=== PATIENT | male | born 1960 | race Two or more races ===

== ENCOUNTER → 2016-10-01 | Outpatient (CLI) | payer BC ==
--- NOTE | 2016-10-01 16:08 | REP ---
Chest two views HISTORY: Cough Comparison: None The lungs are clear. The heart is normal in size. The pulmonary vasculature is normal in appearance. The bony structure is intact. IMPRESSION: No acute disease. Signed by Ricci Ferreira MD 10/01/2016 04:00 P
== END ==
LOC: M LRY 15:40
PROVIDERS: ATTEND Physician Assistant
DX: R05 Cough (principal)

== ENCOUNTER → 2016-10-09 | Outpatient (REF) | payer BC ==
[2016-10-09 18:47] LABS: MEAN CORPUSCULAR HEMOGLOBIN 33.2 pg (27.0-33.0); MEAN CORPUSCULAR HGB CONC 33.2 g/dl (32.0-36.5); RED CELL DISTRIBUTION WIDTH 13.1 % (11.5-14.5); WHITE BLOOD COUNT 7.2 K/mm3 (4.0-10.0)
[2016-10-09 19:31] LABS: ALBUMIN/GLOBULIN RATIO 1.21 (1.00-1.93); ALKALINE PHOSPHATASE 84 U/L (45-117); ALT/SGPT 81 U/L (12-78); ANION GAP 8 MEQ/L (8-16); AST/SGOT 38 U/L (15-37); BILIRUBIN,TOTAL 0.5 MG/DL (0.2-1.0); BLOOD UREA NITROGEN 10 MG/DL (7-18); CALCIUM LEVEL 8.5 MG/DL (8.5-10.1); CARBON DIOXIDE LEVEL 31 MEQ/L (21-32); CHLORIDE LEVEL 101 MEQ/L (98-107); CHOLESTEROL LEVEL 173 MG/DL (<200); CREATININE FOR GFR 0.95 MG/DL (0.70-1.30); GLOMERULAR FILTRATION RATE > 60.0 (>56); GLUCOSE, FASTING 166 MG/DL (70-105); POTASSIUM SERUM 4.4 MEQ/L (3.5-5.1); SODIUM LEVEL 140 MEQ/L (136-145); TOTAL PROTEIN 7.3 GM/DL (6.4-8.2); TRIGLYCERIDES LEVEL 243 MG/DL (<150)
== END ==
LOC: M SFHCLERA 09:41
PROVIDERS: ATTEND Physician Assistant
DX: I10 Essential (primary) hypertension (principal); Z13.220 Encounter for screening for lipoid disorders; E55.9 Vitamin D deficiency, unspecified

== ENCOUNTER → 2018-02-26 | Outpatient (CLI) | payer BC | LOC: M LRY 12:47 | DX: M17.11 Unilateral primary osteoarthritis, right knee (principal); M79.89 Other specified soft tissue disorders | CPT/HCPCS: 73564; G0463 ==

== ENCOUNTER 2018-09-12 12:19 | Observation (INO) | payer BC ==
[~2018-09-12] VITALS: Ht 182.9 cm; Wt 152.0 kg
[2018-09-12] MEDS ORDERED: CLAR10CA3 PO (12:32)
[2018-09-12] MEDS ORDERED: PRIL20TA2 PO (12:32)
[2018-09-12] MEDS ORDERED: VENTAER INH (12:33)
[2018-09-12] MEDS ORDERED: E-Z-PAQUE 96% w/w SUSP 176GM BTL As Ordered ONE (15:20)
[2018-09-12] MEDS ORDERED: E-Z-GAS II EFFERVESCENT PACKET (SODIUM BICARB./CITRIC ACID/SIMETHICONE) As Ordered ONE (15:20)
[2018-09-12] MEDS ORDERED: E-Z-HD 98% w/w 340GM SUSP BTL As Ordered ONE (15:20)
[2018-09-12] MEDS ORDERED: D5W/0.45% SODIUM CHLORIDE 1,000 ML IV SCH (18:04)
[2018-09-12] MEDS ORDERED: PANTOPRAZOLE 40MG INJ (PROTONIX) (C9113) IV ONE (18:15)
[2018-09-12] MEDS ORDERED: ALBUTEROL SULFATE 2.5 MG/0.5 ML INH NEB SOLN NEB PRN (19:45)
[2018-09-12 19:59] LABS: HEMOGLOBIN 14.9 g/dl (13.5-17.5); MEAN CORPUSCULAR HGB CONC 33.9 g/dl (32.0-36.5); MEAN CORPUSCULAR VOLUME 91.7 fl (80.0-96.0); PLATELET COUNT, AUTOMATED 248 10^3/uL (150-450); WHITE BLOOD COUNT 12.8 10^3/uL (4.0-10.0)
[2018-09-12] MEDS: D5W/0.45% SODIUM CHLORIDE 1,000 ML IV SCH (20:00)
[2018-09-12 20:10] LABS: INR 1.06; PROTHROMBIN TIME 13.9 SECONDS (12.1-14.4)
[2018-09-12 20:27] LABS: ALBUMIN 4.4 GM/DL (3.2-5.2); ALT/SGPT 62 U/L (12-78); BILIRUBIN,TOTAL 0.6 MG/DL (0.2-1.0); BLOOD UREA NITROGEN 17 MG/DL (7-18); CALCIUM LEVEL 9.7 MG/DL (8.8-10.2); CARBON DIOXIDE LEVEL 26 MEQ/L (21-32); CHLORIDE LEVEL 104 MEQ/L (98-107); CREATININE FOR GFR 0.94 MG/DL (0.70-1.30); GLOMERULAR FILTRATION RATE > 60.0 (>49); GLUCOSE, FASTING 97 MG/DL (70-100); POTASSIUM SERUM 4.3 MEQ/L (3.5-5.1); SODIUM LEVEL 139 MEQ/L (136-145)
--- NOTE | 2018-09-12 20:28 | REP ---
Esophagram The procedure was performed under the direct supervision of Dr. Felton. The images were reviewed with Dr. Felton. A single view PA chest x-ray is submitted as a lifestyle director film. The superior mediastinal structures are midline. The heart size is within normal limits. The lungs are clear. Liquid barium was given in the erect position. There is narrowing at the GE junction. There is a food impaction which causes a partial obstruction. Some contrast does pass into the stomach, however, there is delayed emptying in the upright position. Impression: There is narrowing at the GE junction. There is a food impaction which causes a partial obstruction. Some contrast does pass into the stomach, however, there is delayed emptying in the upright position. 0.6 minutes of fluoro time was utilized for this procedure. Reviewed by MADI Del Valle 09/12/2018 03:47 P Electronically Signed by Adrian Felton MD 09/12/2018 08:19 P
[2018-09-12 20:30] VITALS: BP 143/72
--- NOTE | 2018-09-12 21:50 | HPE ---
DATE OF ADMISSION: 09/12/2018 PRIMARY CARE PROVIDER: [facility] ATTENDING PHYSICIAN: Hospitalist Group COMPOSITE BOND WORKER: Dr. Elkins CHIEF COMPLAINT: Foreign body in esophagus. HISTORY: Tyler Isabel is being admitted to the hospitalist service after developing impacted foreign body in his esophagus. hot dog and felt a "stick" in his upper esophagus area, pointing to the sternal notch region. He was unable to bring this up. He could not swallow any further food and had trouble passing liquids. He came to the emergency room. An esophagogram was done, which showed narrowing at the gastroesophageal junction. There was a food impaction causing partial obstruction. Some contrast does pass in the stomach. There is delayed emptying in the upright position. Dr. Elkins has been consulted. We discussed the case. He plans esophagogastroduodenoscopy (EGD) and disimpaction tomorrow. Patient is having no trouble swallowing secretions. He is not having any pain. He is quite comfortable. There is no respiratory difficulty at all. He has a past history of a previous esophageal stricture that was dilated 23 years ago. He has had intermittent problems since then with food feeling like it is sticking transiently, but none that has ever required medical intervention. PAST MEDICAL HISTORY: Shows some mild asthma. He also has some knee pain recently that he took a few days of meloxicam for back in June. He is not currently taking this. SOCIAL HISTORY: He is a therapist at [employer]. He does not smoke. No alcohol. ALLERGIES: BACTRIM caused a rash. He has GLUTEN intolerance and is allergic to HORSE SERUM, MILK, DAIRY, EGGS. FAMILY HISTORY: Noncontributory. REVIEW OF SYSTEMS: No hematemesis, rectal bleeding, unexplained weight loss, cough, shortness of breath, fever, chills. PHYSICAL EXAMINATION: Vital Signs: Per flow sheet. General Appearance: He is resting comfortably in no distress. Pupils equal, round, reactive to light. Tympanic membranes (TMs) normal. Pharynx benign. Neck: No masses. Lungs: Clear. Heart: Regular without murmur. Abdomen: Soft, nontender, no masses. No peripheral edema. LABORATORY: No labs were done. IMPRESSION: Impacted foreign body in esophagus. PLAN: Patient will be admitted overnight. He will be nothing by mouth (n.p.o.). He is not having any trouble handling secretions nor any pain, so EGD can be scheduled tomorrow. Case discussed with Dr. Elkins from the GI service. I have ordered Protonix 40 mg IV, maintenance IV fluids with half normal saline with some dextrose for overnight, albuterol as needed. I expect he can be discharged tomorrow after his procedure. He will be on the hospitalist service.
[2018-09-13] VITALS (8 sets, daily range): BP systolic 130–160; BP diastolic 50–80
[2018-09-13] MEDS: D5W/0.45% SODIUM CHLORIDE 1,000 ML IV SCH ×2 (03:47→12:00)
[2018-09-13] MEDS ORDERED: PANTOPRAZOLE 40MG INJ (PROTONIX) (C9113) IV SCH (09:00)
--- NOTE | 2018-09-13 13:18 | IPNPDOC ---
Date Seen The patient was seen on 09/13/18. Progress Note SUBJECTIVE: Patient is a 58M seen and examined this morning does not appear in acute distress. Patient was admitted for EGD later TODAY with Dr. Mayer. He has no complaints and does not complaining of discomfort. He is unable to articulate if the food is still stuck in there does state that the imaging last night showed that he still had a foreign body stuck in his throat. He denies any chest pain shortness of breath or trouble breathing. He is hungry this morning and would like to have the food but understand that he cannot have any until after his procedure. There was no overnight events reported by nursing. OBJECTIVE PHYSICAL EXAMINATION: VITAL SIGNS: Please see below. GENERAL: resting comfortably in no distress. Appropriately answering questions HEENT: Pupils equal, round, reactive to light. Tympanic membranes (TMs) normal. Pharynx benign. CARDIOVASCULAR: Regular rate and rhythm no audible murmurs RESPIRATORY: Clear to auscultate bilaterally no rhonchi or wheezing ABDOMINAL: Morbidly obese abdomen positive bowel sounds in all 4 quadrants. No tenderness on palpation EXTREMITIES: No lower extremity edema or tenderness in the calves LABORATORY DATA, IMAGING STUDIES, MICROBIOLOGY: Please see below. DVT prophylaxis ordered?: No, ambulatory ASSESSMENT AND PLAN: This is a 58-year-old male with a pertinent past medical history of previous esophageal strictures that dilatated 23 years ago as well as a gluten allergy and dairy and eggs who presented to the ER after he got a hotdog stuck above his EGJ. PROBLEMS: 1. Impacted foreign body in esophagus. -not having any trouble handling secretions nor any pain -nothing by mouth (n.p.o.). -EGD with Dr. Elkins from the GI service this afternoon; case discussed - plan for removal of obstruction and possible dilation c/w Protonix 40 mg IV, D5 +.45 NS 125 MLS/hr. DISPOSITION: -Possible DC after EGD. . VS, I&O, 24H, Fishbone Vital Signs/I&O Vital Signs Date Time Temp Pulse Resp B/P (MAP) Pulse Ox O2 Delivery O2 Flow Rate FiO2 09/13/18 06:00 98.6 80 18 133/62 (85) 95 09/12/18 20:15 Room Air I&O- Last 24 Hours up to 6 AM 09/13/18 06:00 Intake Total 0 ml Output Total 300 ml Balance -300 ml Laboratory Data 24H LABS Laboratory Tests 2 09/12/18 19:46: Nucleated Red Blood Cells % (auto) 0.0 09/12/18 19:51: Prothrombin Time 13.9, Prothromb Time International Ratio 1.06, Activated Partial Thromboplast Time 25.0L, Anion Gap 9, Glomerular Filtration Rate > 60.0, Blood Urea Nitrogen 17, Creatinine 0.94, Sodium Level 139, Potassium Level 4.3, Chloride Level 104, Carbon Dioxide Level 26, Calcium Level 9.7, Aspartate Amino Transf (AST/SGOT) 33, Alanine Aminotransferase (ALT/SGPT) 62, Alkaline Phosphatase 88, Total Bilirubin 0.6, Total Protein 8.0, Albumin 4.4, Albumin/Globulin Ratio 1.22 CBC/BMP Laboratory Tests 09/12/18 19:46 Red Blood Count 4.80, Mean Corpuscular Volume 91.7, Mean Corpuscular Hemoglobin 31.0, Mean Corpuscular Hemoglobin Concent 33.9, Red Cell Distribution Width 13.0 09/12/18 19:51 Calcium Level 9.7, Aspartate Amino Transf (AST/SGOT) 33, Alanine Aminotrans ferase (ALT/SGPT) 62, Alkaline Phosphatase 88, Total Bilirubin 0.6, Total Protein 8.0, Albumin 4.4 GME ATTESTATION GME ATTESTATION My faculty preceptor for this patient encounter was physically present during the encounter and was fully available. All aspects of the patient interview, examination, medical decision making process, and medical care plan development were reviewed and approved by the faculty preceptor. The faculty preceptor is aware and concurs with the plan as stated in the body of this note and will attest to such by his/her cosignature. ATTENDING NOTE I, Uvaldo Mcgowan, have both independently examined this patient as well as reviewed the documentation. I have discussed in detail with the resident the findings and plan of treatment as documented in the residents documentation. I will continue to follow the patient and offer further guidance to the patients care as necessary during this hospital stay. HILDA WALKER DO Sep 13, 2018 13:18 UVALDO MCGOWAN MD Sep 13, 2018 13:29
--- NOTE | 2018-09-13 14:44 | CR.PDOC ---
General Date of Consultation: Sep 13, 2018 Referring Provider: Jamil Negron MD Attending Physician: SRIDHAR GUTIÉRREZ MD Consultation Primary physician/ hospitalist: Dr. Negron. Reason for consult: Dysphagia. HPI: 58 year old male patient with h/o Obesity (BMI 45), BA, chronic acid reflux with previous history of esophageal stricture and dilation presented to ER for complaints of feeling of food getting stuck when he ate 'hotdog' yesterday afternoon. Patient while in ER got soda and he felt some improvement and later had Barium swallow as per the ER physician -- noted with passage of contrast into the stomach with stricture and suspected partial food impaction. Patient reports he does feel the food passed and currently does not have any further chest discomfort, no drooling of saliva and also requesting to eat food. Patient reports having intermittent episodes of similar symptoms in past when he either drinks water and it passes or he indices vomiting. Patient is not taking omeprazole daily at home. Pertinent negative GI symptoms: Patient denies nausea, vomiting, diarrhea, abdominal pain, loss of appetite, early satiety or unintentional weight loss. No history of hematemesis, melena or hematochezia. Patient reports regular bowel movements. Review of Systems: GI: as stated above CVS: No chest pain, No palpitations, No leg swelling. RS: No Shortness of breath, No Wheezing, no cough ENTRY LEVEL ACCOUNT EXECUTIVE: No dizziness, No motor weakness, No sensory problems Hematology: No bruising, No gum bleeding, Musculoskeletal: No joint pain, ambulating well. Skin: No rash : No hematuria, No burning sensation of the urine ENT: No ear discharge/ pain, No dysphagia. Eyes: No photophobia. Jaundice Home medications: reviewed. Antithrombotic agents - None. Medical h/o: As above. Surgical h/o: None on abdomen. Social h/o: Alcohol - rarely social. , smoking - denies , IVDA/ drugs -- Denies . Family h/o of GI cancers - None Prior Endoscopies: --- EGD -- around 23 years ago for dysphagia and stricture dilation. --- Colonoscopy -- had twice in past - normal as per patient ( outside [facility]). Prior GI evaluations: None in [facility]. Exam: Vitals: reviewed General: Alert and oriented x 3, not in distress HEENT: NO pallor, no icterus. Normal oropharynx, NO cervical lymph nodes. Chest: symmetric with bilateral clear air entry, CVS: S1, S2 heard, normal, no murmurs . Abdomen: non-distended, no surgical scars, soft, non-tender, no palpable masses, normal bowel sounds heard. Rectal exam: Patient refused / Deferred at this time in view of scheduled colonoscopy. Extremities: no pedal edema, pulses palpable. ENTRY LEVEL ACCOUNT EXECUTIVE: no focal motor or sensory deficits. Moves all extremities Skin: no rash. Labs: reviewed. Imaging: reviewed Barium swallow - reviewed images. Impression: - Dysphagia with suspected stricture in Barium swallow with prior recurrent episodes of food impactions, currently patient clinically passed the food -- DDX-- GERD with esophagitis vs Achalasia vs less likely Web / mass. Recommendations: - Patient educated about the test results, possible differential diagnoses and All questions answered. - NPO - IV pantorpazole 40 mg twice daily. - Patient will be scheduled for EGD with dilation and Biopsy today. - The procedure, indications, risks (bleeding, perforation, infection, hypotension, respiratory depression, allergy, need for endotracheal intubation, surgery, colostomy, cardiac arrest, even ), benefits, limitations (e.g., missing a lesion), and all other alternatives (including no intervention) were explained to the patient who understood and agreed for the procedure. Plan of care discussed with patient and primary team. Patient verbalized understanding and agreed with the plan. Laboratory Data CBC/BMP Laboratory Tests 09/12/18 19:46 Red Blood Count 4.80, Mean Corpuscular Volume 91.7, Mean Corpuscular Hemoglobin 31.0, Mean Corpuscular Hemoglobin Concent 33.9, Red Cell Distribution Width 13.0 09/12/18 19:51 Calcium Level 9.7, Aspartate Amino Transf (AST/SGOT) 33, Alanine Powell otransferase (ALT/SGPT) 62, Alkaline Phosphatase 88, Total Bilirubin 0.6, Total Protein 8.0, Albumin 4.4 Allergies Coded Allergies: Sulfa (Sulfonamide Antibiotics) (Verified Allergy, Severe, rash, 09/12/18) red dye (Verified Allergy, Unknown, 09/12/18) UNKOWN REACTION egg (Verified Adverse Reaction, Intermediate, 09/12/18) gluten (Verified Adverse Reaction, Intermediate, GI upset, 09/12/18) lactase (Verified Adverse Reaction, Intermediate, 09/12/18) Uncoded Allergies: HORSE SERUM (Allergy, Unknown, 09/12/18) UNKNOWN Home Medications Scheduled Omeprazole Magnesium (Prilosec Otc) 20 Mg Tablet.dr, 20 MG PO DAILY, (Reported) Scheduled PRN Albuterol Sulfate (Ventolin Hfa) 18 Gm Hfa.aer.ad, 2 PUFFS INH Q4-6H PRN for wheezing, (Reported) Loratadine (Claritin) 10 Mg Capsule, 10 MG PO DAILY PRN for ALLERGY SYMPTOMS, (Reported) SRIDHAR GUTIÉRREZ MD Sep 13, 2018 14:44
[2018-09-13] MEDS ORDERED: LIDOCAINE 2% INJ 100 MG/5 ML SDV (FOR ANES.) As Ordered ONE (15:09)
[2018-09-13] MEDS ORDERED: PROPOFOL 200 MG/20 ML VIAL As Ordered ONE (15:09)
[2018-09-13] MEDS ORDERED: fentaNYL 100 MCG/2 ML INJECTION (J3010) As Ordered ONE (15:09)
[2018-09-13] MEDS ORDERED: LR 1,000 ML IV SCH (17:00)
[2018-09-13] MEDS ORDERED: METOCLOPRAMIDE INJ 10MG/2ML VIAL (J2765) IV PRN (17:00)
[2018-09-13] MEDS ORDERED: ONDANSETRON 4MG/2ML VIAL (J2405) IV PRN (17:00)
[2018-09-13] MEDS ORDERED: fentaNYL 100 MCG/2 ML INJECTION (J3010) IV PRN (17:00)
--- NOTE | 2018-09-13 17:15 | ROOR ---
Patient Name: Tyler Isabel Procedure Date: 09/13/2018 2:19 PM Date of : 1960 Age: 58 Gender: Male Note Status: Finalized Procedure: Upper GI endoscopy Indications: Dysphagia, Abnormal UGI series Providers: Gelacio Elkins MD Referring MD: Jamil Negron MD Requesting Provider: Medicines: Monitored Anesthesia Care Complications: No immediate complications. Procedure: Pre-Anesthesia Assessment: - Prior to the procedure, a History and Physical was performed, and patient medications and allergies were reviewed. The patient is competent. The risks and benefits of the procedure and the sedation options and risks were discussed with the patient. All questions were answered and informed consent was obtained. Patient identification and proposed procedure were verified by the physician, the nurse and the anesthesiologist in the procedure room. Mental Status Examination: alert and oriented. Airway Examination: normal oropharyngeal airway and neck mobility. Respiratory Examination: clear to auscultation. CV Examination: normal. Prophylactic Antibiotics: The patient does not require prophylactic antibiotics. Prior Anticoagulants: The patient has taken no previous anticoagulant or antiplatelet agents. ASA Grade Assessment: III - A patient with severe systemic disease. After reviewing the risks and benefits, the patient was deemed in satisfactory condition to undergo the procedure. The anesthesia plan was to use monitored anesthesia care (MAC). Immediately prior to administration of medications, the patient was re-assessed for adequacy to receive sedatives. The heart rate, respiratory rate, oxygen saturations, blood pressure, adequacy of pulmonary ventilation, and response to care were monitored throughout the procedure. The physical status of the patient was re-assessed after the procedure. The Endoscope was introduced through the mouth, and advanced to the second part of duodenum. The upper GI endoscopy was accomplished without difficulty. The patient tolerated the procedure well. Findings: One benign-appearing, intrinsic moderate (circumferential scarring or stenosis; an endoscope may pass) stenosis was found 40 cm from the incisors. This stenosis measured 1 cm (inner diameter). The stenosis was traversed. Biopsies were obtained from the proximal and distal esophagus with cold forceps for histology of suspected eosinophilic esophagitis. Verification of patient identification for the specimen was done by the physician and nurse using the patient's name, date and medical record number. Estimated blood loss was minimal. A TTS dilator was passed through the scope. Dilation with a 15-16.5-18 mm balloon dilator was performed to 15 mm. The dilation site was examined following endoscope reinsertion and showed mild mucosal disruption, moderate improvement in luminal narrowing, no bleeding and no perforation. Patchy mild inflammation characterized by erythema, friability and granularity was found in the gastric antrum. Biopsies were taken with a cold forceps for Helicobacter pylori testing. No gross lesions were noted in the duodenal bulb and in the second portion of the duodenum. Biopsies for histology were taken with a cold forceps for evaluation of celiac disease. Impression: - Benign-appearing esophageal stenosis. Biopsied. Dilated. - Gastritis. Biopsied. - No gross lesions in the duodenal bulb and in the second portion of the duodenum. Biopsied. Recommendation: - Patient has a contact number available for emergencies. The signs and symptoms of potential delayed complications were discussed with the patient. Return to normal activities tomorrow. Written discharge instructions were provided to the patient. - Full liquid diet today, then advance as tolerated to resume regular diet. - Continue present medications. - Use Protonix (pantoprazole) 40 mg PO twice daily - to be taken in morning (1/2 hour before breakfast) and at bedtime ( atleast 3 hours after last meal) for 12 weeks. - Await pathology results. - Repeat upper endoscopy in 3 months for retreatment and depending on the symptoms and clinical response. - Return to GI clinic in [facility] (address [address], [address], [place], [facility]) in 4 -- 6 weeks. Please call GI clinic @ [phone] for apppointment date and time. - Return to primary care physician. Gelacio Elkins MD Gelacio Elkins MD 09/13/2018 5:15:13 PM Electronically signed by Gelacio Elkins MD Number of Addenda: 0 Note Initiated On: 09/13/2018 2:19 PM Estimated Blood Loss: Estimated blood loss was minimal.
[2018-09-13] MEDS: PANTOPRAZOLE 40MG TAB (PROTONIX) PO SCH (19:59)
[2018-09-14 02:30] VITALS: BP 156/90
[2018-09-14 06:00] VITALS: BP 143/67
[2018-09-14] MEDS ORDERED: PANT40TA3 PO (07:15)
[2018-09-14] MEDS: PANTOPRAZOLE 40MG TAB (PROTONIX) PO SCH (07:53)
[2018-09-14 10:00] VITALS: BP 140/72
--- NOTE | 2018-09-14 11:53 | DS.PDOC ---
Discharge Summary General Date of Admission Sep 12, 2018 at 19:35 Date of Discharge September 14, 2018 Discharge Summary PROCEDURES PERFORMED DURING STAY: EGD Dr. Elkins 09/13/18 - Impression: - Benign-appearing esophageal stenosis. Biopsied. Dilated. - Gastritis. Biopsied. - No gross lesions in the duodenal bulb and in the second portion of the duodenum. Biopsied. Recommendation: - Patient has a contact number available for emergencies. The signs and symptoms of potential delayed complications were discussed with the patient. Return to normal activities tomorrow. Written discharge instructions were provided to the patient. - Full liquid diet today, then advance as tolerated to resume regular diet. - Continue present medications. - Use Protonix (pantoprazole) 40 mg PO twice daily - to be taken in morning (1/2 hour before breakfast) and at bedtime ( atleast 3 hours after last meal) for 12 weeks. - Await pathology results. - Repeat upper endoscopy in 3 months for retreatment and depending on the symptoms and clinical response. - Return to GI clinic in [facility] (address [address], [address], [place] [address]) in 4 -- 6 weeks. Please call GI clinic @ [phone] for apppointment date and time. - Return to primary care physician. ADMITTING DIAGNOSES: 1. Impacted foreign body in esophagus DISCHARGE DIAGNOSES: 1. Impacted foreign body in esophagus 2. Dysphagia due to esophageal stenosis COMPLICATIONS/CHIEF COMPLAINT: Foriegn Body In Esophagus. HISTORY OF PRESENT ILLNESS: Tyler Isabel is being admitted to the hospitalist service after developing impacted foreign body in his esophagus. He was eating an hot dog and felt a "stick" in his upper esophagus area, pointing to the sternal notch region. He was unable to bring this up. He could not swallow any further food and had trouble passing liquids. He came to the emergency room. An esophagogram was done, which showed narrowing at the gastroesophageal junction. There was a food impaction causing partial obstruction. Some contrast does pass in the stomach. There is delayed emptying in the upright position. Dr. Elkins has been consulted. We discussed the case. He plans esophagogastroduodenoscopy (EGD) and disimpaction tomorrow. Patient is having no trouble swallowing secretions. He is not having any pain. He is quite comfortable. There is no respiratory difficulty at all. HOSPITAL COURSE: Patient was admitted for EGD which was performed on 09/13/[address] Mario More. It showed that he had a benign-appearing esophageal stenosis and it was dilated. Biopsies were taken of the esophagus and of his gastritis. After the procedure his diet was advanced from full liquid to regular diet which he tolerated well. His home omeprazole was stopped and is advised him to continue to start Protonix 40 mg twice a day for the next 12 weeks. He is to follow-up with Dr. Elkins in 4-6 weeks and have a repeat upper endoscopy in 3 months for retreatment and depending on symptoms and clinical response. All the plans are stated to the patient on the day of discharge. He was agreeable to everything. DISCHARGE MEDICATIONS: Please see below. ALLERGIES: Please see below. PHYSICAL EXAMINATION ON DISCHARGE: VITAL SIGNS: Please see below. GENERAL: resting comfortably in no distress. Appropriately answering questions HEENT: Pupils equal, round, reactive to light. Tympanic membranes (TMs) normal. Pharynx benign. CARDIOVASCULAR: Regular rate and rhythm no audible murmurs RESPIRATORY: Clear to auscultate bilaterally no rhonchi or wheezing ABDOMINAL: Morbidly obese abdomen positive bowel sounds in all 4 quadrants. No tenderness on palpation EXTREMITIES: No lower extremity edema or tenderness in the calves LABORATORY DATA: Please see below. IMAGING: Esophagus XRAY Impression: There is narrowing at the GE junction. There is a food impaction which causes a partial obstruction. Some contrast does pass into the stomach, however, there is delayed emptying in the upright position. 0.6 minutes of fluoro time was utilized for this procedure. PROGNOSIS: Fair ACTIVITY: As tolerated. DIET: Regular DISPOSITION: Home DISCHARGE INSTRUCTIONS: 1. f.u with Dr. Eastman 09/21@10AM 2. f.u. with Dr. Elkins 11/02@10:30AM 3. Stopped omperazole and start pantoprazole Twice a day, prescription sent to pharmacy. 4. If symptoms return or worsen please call your PCP or return to the ER DISCHARGE CONDITION: Stable. TIME SPENT ON DISCHARGE: Greater than 30 minutes. Vital Signs/I&Os Vital Signs Date Time Temp Pulse Resp B/P (MAP) Pulse Ox O2 Delivery O2 Flow Rate FiO2 09/14/18 10:00 97.3 87 18 140/72 (94) 95 09/13/18 18:30 2.0 09/13/18 16:35 100 09/12/18 20:15 Room Air I&O- Last 24 Hours up to 6 AM 09/14/18 06:00 Intake Total 2970 ml Output Total 3705 ml Balance -735 ml Discharge Medications Scheduled Pantoprazole Sodium (Pantoprazole Sodium) 40 Mg Tablet.dr, 40 MG PO BID Scheduled PRN Albuterol Sulfate (Ventolin Hfa) 18 Gm Hfa.aer.ad, 2 PUFFS INH Q4-6H PRN for wheezing, (Reported) Loratadine (Claritin) 10 Mg Capsule, 10 MG PO DAILY PRN for ALLERGY SYMPTOMS, (Reported) Allergies Coded Allergies: Sulfa (Sulfonamide Antibiotics) (Verified Allergy, Severe, rash, 09/12/18) Horse/Equine Containing Products (Verified Allergy, Unknown, HORSE SERUM, 09/13/18) red dye (Verified Allergy, Unknown, 09/12/18) UNKOWN REACTION egg (Verified Adverse Reaction, Intermediate, 09/12/18) gluten (Verified Adverse Reaction, Intermediate, GI upset, 09/12/18) lactase (Verified Adverse Reaction, Intermediate, 09/12/18) GME ATTESTATION GME ATTESTATION My faculty preceptor for this patient encounter was physically present during the encounter and was fully available. All aspects of the patient interview, examination, medical decision making process, and medical care plan development were reviewed and approved by the faculty preceptor. The faculty preceptor is aware and concurs with the plan as stated in the body of this note and will attest to such by his/her cosignature. ATTENDING NOTE I, Uvaldo Mcgowan, have both independently examined this patient as well as reviewed the documentation. I have discussed in detail with the resident the findings and plan of treatment as documented in the residents documentation. I will continue to follow the patient and offer further guidance to the patients care as necessary during this hospital stay. HILDA WALKER DO Sep 14, 2018 11:53 UVALDO MCGOWAN MD Sep 14, 2018 18:24
== END 2018-09-14 11:04 | disposition home or self-care (01) ==
LOC: M ED 12:19 → M ED INP 19:35 → M MSPAV 20:33
PROVIDERS: ADMIT Family Medicine; ATTEND Internal Medicine
DX: T18.128A Food in esophagus causing other injury, initial encounter (principal); K22.2 Esophageal obstruction; K29.70 Gastritis, unspecified, without bleeding; R13.10 Dysphagia, unspecified; R93.3 Abnormal findings on diagnostic imaging of other parts of digestive tract; E66.9 Obesity, unspecified; J45.909 Unspecified asthma, uncomplicated; Z79.899 Other long term (current) drug therapy; Z88.2 Allergy status to sulfonamides; Z88.8 Allergy status to other drugs, medicaments and biological substances; Y92.009 Unspecified place in unspecified non-institutional (private) residence as the place of occurrence of the external cause
CPT/HCPCS: 43239; 43249; 74220; 80053; 85027; 85610; 85730; 88305; 96374; 96376; 99284; C9113; J3010

== ENCOUNTER → 2018-12-01 | Outpatient (CLI) | payer BC ==
[~2018-12-01] MED LIST: CLAR10CA3 PO; E-Z-GAS II EFFERVESCENT PACKET (SODIUM BICARB./CITRIC ACID/SIMETHICONE) As Ordered ONE; E-Z-HD 98% w/w 340GM SUSP BTL As Ordered ONE; E-Z-PAQUE 96% w/w SUSP 176GM BTL As Ordered ONE; PANT40TA3 PO; PRIL20TA2 PO; VENTAER INH
--- NOTE | 2018-12-04 07:48 | REP ---
Examination Requested: Esophagram Barium Swallow Reason For Exam/Comment: Gastroesophageal reflux disease with esophagitis Esophagram: The procedure was performed MADI Lane, under the direct supervision of Dr. Caldera. The images were reviewed with Dr. Caldera. A single PA chest x-ray is submitted as a reviewer sales film. There is a right hilar/lower lobe opacity. Lung mass cannot be excluded, CT of the chest is recommended. Liquid barium and gas producing granules were given in the erect position as well as liquid barium in the prone oblique position, in order to perform a double contrast esophagram examination. Oral and pharyngeal stages of the examination were unremarkable. Esophageal transport is efficient and there is no esophagitis, stricture, or mucosal ring noted. There is no hiatal hernia noted. Gastroesophageal reflux was not demonstrated throughout the course of the exam. Impression: 1. Right lower lobe opacity, CT chest recommended. 2. Unremarkable esophagram. 0.5 minutes of fluoroscopy time was utilized for this procedure. Some fluoroscopic images are performed with last image hold technology. These images require no additional radiation. Reviewed by MADI Virk 12/01/2018 04:56 P Electronically Signed by Melecio Caldera MD 12/04/2018 07:39 A
== END ==
LOC: M RAD 10:04
PROVIDERS: ATTEND Internal Medicine Gastroenterology
DX: K21.0 Gastro-esophageal reflux disease with esophagitis (principal)

== ENCOUNTER → 2019-05-26 | Outpatient (CLI) | payer BC ==
[~2019-05-26] MED LIST changes: -E-Z-GAS II EFFERVESCENT PACKET (SODIUM BICARB./CITRIC ACID/SIMETHICONE) As Ordered ONE; -E-Z-HD 98% w/w 340GM SUSP BTL As Ordered ONE; -E-Z-PAQUE 96% w/w SUSP 176GM BTL As Ordered ONE
--- NOTE | 2019-05-27 09:56 | REP ---
REASON: Cough. COMPARISON: 10/01/2016, the only prior. There is cardiomegaly. There are chronic lung field changes status quo. There are no acute patchy parenchymal opacities or pleural effusions. There is no change in the osseous structures. IMPRESSION:Cardiomegaly, otherwise no significant change from 10/01/2016. There is no evidence of acute cardiopulmonary disease. There is evidence of chronic pulmonary vascular redistribution. Mild chronic interstitial edema should be clinically assessed for. Electronically Signed by Benedicto Perdomo DO 05/27/2019 09:58 A
== END ==
LOC: M LRY 14:18
PROVIDERS: ATTEND Physician Assistant
DX: I51.7 Cardiomegaly (principal); R50.9 Fever, unspecified

== ENCOUNTER → 2019-06-03 | Outpatient (CLI) | payer BC | LOC: M LRY 17:13 | PROVIDERS: ATTEND Physician Assistant | DX: J40 Bronchitis, not specified as acute or chronic (principal); R03.0 Elevated blood-pressure reading, without diagnosis of hypertension ==

== ENCOUNTER → 2019-10-02 | Outpatient (REF) | payer BC | LOC: M LAB REF 18:11 | PROVIDERS: ATTEND Dermatology | DX: D36.7 Benign neoplasm of other specified sites (principal) ==

== ENCOUNTER 2020-04-28 17:15 | Observation (INO) | payer BC ==
[~2020-04-28] VITALS: Ht 182.9 cm; Wt 156.5 kg
[~2020-04-28 17:15] MED LIST changes: +PANT40TA29 PO; -PANT40TA3 PO
[2020-04-28] MEDS ORDERED: LABETALOL 100MG/20ML VIAL IV STA (18:14)
[2020-04-28 18:52] LABS: BASO % 0.4 % (0.0-1.0); EOS # 0.2 10^3/uL (0.0-0.5); EOS % 1.7 % (0.0-3.0); HEMOGLOBIN 14.4 g/dl (13.5-17.5); LYMPH # 1.9 10^3/uL (1.5-5.0); LYMPH % 17.7 % (24.0-44.0); MEAN CORPUSCULAR HGB CONC 32.7 g/dl (32.0-36.5); MEAN CORPUSCULAR VOLUME 91.7 fl (80.0-96.0); MONO # 0.7 10^3/uL (0.0-0.8); MONO % 6.7 % (0.0-5.0); NEUTROPHILS # 7.8 10^3/uL (1.5-8.5); NEUTROPHILS % 73.2 % (36.0-66.0); PLATELET COUNT, AUTOMATED 213 10^3/uL (150-450); WHITE BLOOD COUNT 10.7 10^3/uL (4.0-10.0)
[2020-04-28 19:19] LABS: ALBUMIN 3.9 GM/DL (3.2-5.2); ALT/SGPT 41 U/L (12-78); BILIRUBIN,DIRECT 0.2 MG/DL (0.0-0.2); BILIRUBIN,TOTAL 0.6 MG/DL (0.2-1.0); BLOOD UREA NITROGEN 13 MG/DL (7-18); CALCIUM LEVEL 9.6 MG/DL (8.8-10.2); CARBON DIOXIDE LEVEL 29 MEQ/L (21-32); CHLORIDE LEVEL 102 MEQ/L (98-107); CK-MB VALUE MASS 3.2 NG/ML (<3.6); CPK CREATINE PHOSPHOKINASE 120 U/L (39-308); CREATININE FOR GFR 0.99 MG/DL (0.70-1.30); GLOMERULAR FILTRATION RATE > 60.0 (>49); GLUCOSE, FASTING 124 MG/DL (70-100); MB/CK RELATIVE INDEX 2.67 (< OR =4); POTASSIUM SERUM 4.1 MEQ/L (3.5-5.1); SODIUM LEVEL 138 MEQ/L (136-145); TOTAL PROTEIN 7.5 GM/DL (6.4-8.2); TROPONIN I 0.03 NG/ML (< 0.10)
--- NOTE | 2020-04-28 20:40 | REPVR ---
PROCEDURE INFORMATION: Exam: XR Chest, 1 View Exam date and time: 04/28/2020 8:30 PM Age: 60 years old Clinical indication: Chest pain TECHNIQUE: Imaging protocol: XR of the chest Views: 1 view. COMPARISON: CR CHEST 2 VIEW 06/03/2019 5:16 PM FINDINGS: Lungs: Unremarkable. No consolidation. Pleural space: Unremarkable. No pleural effusion. No pneumothorax. Heart/Mediastinum: Unremarkable. No cardiomegaly. Bones/joints: Unremarkable. IMPRESSION: No acute findings. Electronically signed by: Kevin Mendes On 04/28/2020 20:40:24 PM
[2020-04-28] MEDS ORDERED: KRIL1CAP7 PO (21:02)
[2020-04-28] MEDS ORDERED: GREE150C7 PO (21:02)
[2020-04-28] MEDS ORDERED: OMEP1CAP73 PO (21:02)
[2020-04-28] MEDS ORDERED: CLAR10CA3 PO (21:02)
[2020-04-28] MEDS ORDERED: ALPH600C PO (21:02)
[2020-04-28] MEDS ORDERED: PROBCAP14 PO (21:02)
[2020-04-28] MEDS ORDERED: RA T500C2 PO (21:02)
[2020-04-28] MEDS ORDERED: FISH1000 PO (21:02)
[2020-04-28] MEDS ORDERED: COLLCAP PO (21:02)
[2020-04-28] MEDS ORDERED: GINK40TA PO (21:02)
[2020-04-28] MEDS ORDERED: ASPI-161 PO (21:02)
[2020-04-28] MEDS ORDERED: PREVAGEN PO (21:02)
[2020-04-28] MEDS ORDERED: GLUCCAP4 PO (21:02)
[2020-04-28] MEDS ORDERED: BEET ROOT PO (21:02)
[2020-04-28] MEDS ORDERED: MOM 30ML SUSPENSION UDC PO PRN (21:30)
[2020-04-28] MEDS ORDERED: MAALOX 30 ML SUSP *UDC PO PRN (21:30)
[2020-04-28] MEDS ORDERED: ACETAMINOPHEN TAB 650MG DOSE (2X325MG) PO PRN (21:30)
[2020-04-28 22:36] VITALS: BP 188/106
--- NOTE | 2020-04-28 23:25 | HPEPDOC ---
[facility] Medical History & Physical Date of Admission Apr 28, 2020 Date of Service: Apr 28, 2020 Primary Care Physician: STANISLAV PIEDRA Attending Physician: AVE OAKLEY MD History and Physical TIME OF SERVICE: 954 PM CHIEF COMPLAINT: Malaise HISTORY OF PRESENT ILLNESS: This 60-year-old gentleman came to the hospital because he was not feeling well. On April 15 he was exposed to an individual with Covid. He was feeling fine until this morning when he developed a headache, and subjective fever but he didn't have a temperature, or he requested time off of work. In order to return to work. He had to get a well check, therefore he went to urgent care clinic where he was found to have a systolic pressure in the 200s. He has a history of hypertension but stopped taking his medications 20 years ago because of various side effects. Of note, he also had chest pain yesterday. REVIEW OF SYSTEMS: 12 point review of systems negative except as listed in HPI PAST MEDICAL/ SURGICAL HISTORY: Hypertension no longer on meds Asthma History of esophageal stricture with dilation 2 Chronic back pain Obesity Reported that he has celiac disease, but recently reintroduced gluten into his diet SOCIAL HISTORY: He doesn't smoke, drink or use recreational drugs. He works as a therapist at [employer] FAMILY HISTORY: Father had diabetes, NH and pacemaker Mother had hypertension ALLERGIES: Please see below. HOME MEDICATIONS: Please see below. PHYSICAL EXAMINATION: Vital Signs Date Time Temp Pulse Resp B/P (MAP) Pulse Ox O2 Delivery O2 Flow Rate FiO2 04/28/20 17:15 98.6 22 232/128 (162) 97 Room Air GEN: well-nourished / well developed/ NAD INTEGUMENT: not flushed/ not jaundice HEENT: lips acyanotic /mucus membranes moist and pink CVS: RRR/NMRG/ radial pulses intact LUNGS: able to speak full sentences without stopping to take a breath / no coug hoa / lungs are clear to auscultation bilaterally on room air ABDOMEN: Contour ( obese) MSK/EXTREMITIES: NCAT / range of motion intact in all 4 extremities NEURO: CN 2-12 are grossly intact / speech is not dysarthric PSYCH: alert and oriented to person place and time/ able to understand and fol low all commands LABORATORY DATA: 04/28/20 18:42 04/28/20 18:42: Immature Granulocyte % (Auto) 0.3, Neutrophils (%) (Auto) 73.2H, Lymphocytes (%) (Auto) 17.7L, Monocytes (%) (Auto) 6.7H, Eosinophils (%) (Auto) 1.7, Basophils (%) (Auto) 0.4, Neutrophils # (Auto) 7.8, Lymphocytes # (Auto) 1.9, Monocytes # (Auto) 0.7, Eosinophils # (Auto) 0.2, Basophils # (Auto) 0.0, Nucleated Red Blood Cells % (auto) 0.0, Anion Gap 7L, Glomerular Filtration Rate > 60.0, Calcium Level 9.6, Total Bilirubin 0.6, Direct Bilirubin 0.2, Aspartate Amino Transf (AST/SGOT) 22, Alanine Aminotransferase (ALT/SGPT) 41, Alkaline Phosphatase 77, Total Creatine Kinase 120, Creatine Kinase MB 3.2, Creatine Kinase MB Relative Index 2.67, Troponin I 0.03, Total Protein 7.5, Albumin 3.9, Albumin/Globulin Ratio 1.1 04/28/20 19:06: Coronavirus (COVID-19)(PCR) NEGATIVE IMAGING: Chest xray "No acute findings." ASSESSMENT: Mr. Isabel is a 60-year-old with a history of untreated hypertension, asthma, esophageal strictures and morbid obesity who was sent from an urgent care clinic for evaluation of hypertensive urgency; he'll be admitted for observation overnight. PLAN: 1. Hypertensive Urgency Has resolved; the ELLIOTT and chest pain may have been due to uncontrolled BP. Plan: admit to medical floor / start amlodipine and losartan/ discussed the importance of compliance with BP meds and risks of uncontrolled BP including CVA, NH ect.../ low salt diet / he should be referral to supervisor locomotive for assistance w weight loss when ready for dc / f/u with PCP for lipid panel to calculate ASCVD risk score 2. Chest Pain Plan:telemetry / f/u serial troponins / Acetaminophen for CP 3. Asthma Plan:albuterol 4. Class 3 Obesity complicates care Plan: f/u A1C / the pt can f/u w his or her PCP for STOP BANG questionnaire, supervisor locomotive consult & referral to Bariatric Surgeon DVT PROPHYLAXIS: SCDs DISPOSITION: home after less than 2 midnight's stay Home Medications Scheduled Alpha Lipoic Acid (Alpha Lipoic Acid) 600 Mg Capsule, 600 MG PO QPM Ascorbic Acid/Collagen Hydr (Collagen Plus Vit C Capsule) 1 Each Capsule, 1 CAP PO QPM Aspirin (Aspirin EC) 81 Mg Tablet.dr, 81 MG PO 3XW NO SPECIFIC DAYS Ginkgo Biloba (Ginkgo Biloba) 40 Mg Tablet, 40 MG PO DAILY Glucosam/Chond/Collagen/Hyalur (Glucosamine Chondroitin Cap) 1 Each Capsule, 1 CAP PO QPM Green Tea [place] Extract (Green Tea Extract) 150 Mg Capsule, 150 MG PO QPM Krill/Om-3/Dha/Epa/Phospho/Ast (Krill Oil 1,000 mg Softgel) 1 Each Capsule, 1 CAP PO QPM Lactobacillus Acidophilus (Probiotic) 1 Each Capsule, 1 CAP PO DAILY Loratadine (Claritin) 10 Mg Capsule, 10 MG PO DAILY [place]-3 Fatty Acids/Fish Oil (Fish Oil 1,000 mg Capsule) 1 Each Capsule, 1,000 MG PO QPM Turmeric Root Extract (Turmeric) 500 Mg Capsule, 500 MG PO QPM [Beet Root] , 1 TAB PO DAILY [Prevagen] , 1 TAB PO DAILY Scheduled PRN Albuterol Sulfate (Ventolin Hfa) 18 Gm Hfa.aer.ad, 2 PUFFS INH Q4-6H PRN for wheezing Omeprazole (Omeprazole) 20 Mg Capsule.dr, 20 MG PO DAILY PRN for HEARTBURN Allergies Coded Allergies: Sulfa (Sulfonamide Antibiotics) (Verified Allergy, Severe, rash, 09/12/18) Horse/Equine Containing Products (Verified Allergy, Unknown, HORSE SERUM, 09/13/18) red dye (Verified Allergy, Unknown, 09/12/18) UNKOWN REACTION egg (Verified Adverse Reaction, Intermediate, 09/12/18) gluten (Verified Adverse Reaction, Intermediate, GI upset, 09/12/18) lactase (Verified Adverse Reaction, Intermediate, 09/12/18) A-FIB/CHADSVASC A-FIB History Current/History of A-Fib/PAF?: No Current PO Anticoag Therapy: No AVE OAKLEY MD Apr 28, 2020 23:25
[2020-04-28 23:35] VITALS: BP 157/76
[2020-04-29] MEDS ORDERED: ALBUTEROL 90 MCG/ACT 8GM HFA INHALER INH PRN
[2020-04-29] MEDS ORDERED: OMEPRAZOLE 20 MG CAP PO PRN
[2020-04-29] MEDS ORDERED: LOSARTAN 25 MG TAB PO SCH
[2020-04-29] MEDS ORDERED: PILL CUTTER 1 EACH XX PRN (00:45)
[2020-04-29 06:00] VITALS: BP 153/62
--- NOTE | 2020-04-29 07:35 | ECGEPIP ---
[facility] - ED Test Date: 2020-04-28 Pat Name: CHRISTA LE Department: Room: [place] [address] Gender: Male Community Relations Representative: erin : 1960 Requested By: Lori Antonio Order Number: [id number] Reading MD: Thai Delacruz Measurements Intervals [place] Rate: 106 P: 66 OR: 161 QRS: 81 QRSD: 117 T: 63 QT: 341 QTc: 453 Interpretive Statements SINUS TACHYCARDIA MODERATE INTRAVENTRICULAR CONDUCTION DELAY NO PRIORS FOR COMPARISON Electronically Signed on 04-29-2020 7:35:15 EST by Thai Delacruz
[2020-04-29] MEDS ORDERED: ASPIRIN 81 MG ENTERIC TAB PO SCH (09:00)
[2020-04-29] MEDS ORDERED: amLODIPine 5 MG TAB PO SCH (09:00)
[2020-04-29] MEDS ORDERED: amLODIPine 5 MG TAB PO ONE (10:15)
[2020-04-29] MEDS ORDERED: **hydrALAZINE HCL** 25 MG TAB PO SCH (12:00)
[2020-04-29 12:09] VITALS: BP 176/92
[2020-04-29 12:24] VITALS: BP 170/92
[2020-04-29 13:09] VITALS: BP 168/90
[2020-04-29] MEDS ORDERED: HYDR25TA PO (13:36)
[2020-04-29] MEDS ORDERED: AMLO1TAB25 PO (13:36)
[2020-04-29 14:00] VITALS: BP 167/87
--- NOTE | 2020-04-29 15:54 | DS.PDOC ---
Discharge Summary General Date of Admission Apr 28, 2020 at 17:16 Date of Discharge 04/29/2020 Discharge Summary PROCEDURES PERFORMED DURING STAY: [None]. ADMITTING DIAGNOSES / DISCHARGE DIAGNOSES: Hypertensive Urgency Asthma Hx of esophageal stricture (s/p dilation 2) Chronic back pain Obesity DVT prophylaxis COMPLICATIONS/CHIEF COMPLAINT: Chest pain / Elevated BP HISTORY OF PRESENT ILLNESS / HOSPITAL COURSE: Patient is a 60-year-old male with a PMHx Hypertension (not on meds), Asthma, Hx of esophageal stricture (s/p dilation 2), Chronic back pain, Obesity who presented to the hospital for an elevated BP. Patient reports that on 04/15/20, he was exposed to an individual with COVID. In order to return back to work. he had to be evaluated for a well check. He went to urgent care where he was found to have an elevated systolic blood pressure in the 200s and was sent to the ER for further evaluation. Patient was that he stopped taking his medications presently 20 years ago be cause of various side effects of note, he has reported waking of approximately 15-20 pounds recently. Upon arrival to [facility] patient was found to have a systolic blood pressure in the 230s. He was given labetalol IV the ER, then losartan in the evening. This morning he has received amlodipine. Patient's blood pressures have improved, however, not normalized. Currently, patient's systolic blood pressures have been 170s and was given hydralazine to help control his blood pressure. Patient's blood pressure had improved only slightly to the 160s. Patient was at 5 to remain in the hospital for continued blood pressure management and adjustment of his regimen to ensure optimization of his blood pressure. However, patient wanted to leave AGAINST MEDICAL ADVICE. Risks of leaving AGAINST MEDICAL ADVICE were given to him which included worsening of his medical condition, disability and/or and the benefits noted management of his blood pressure and adjustments if needed. Patient has signed AMA paperwork and his left AGAINST MEDICAL ADVICE. Patient has been advised to follow-up with his primary care provider this week. Patient also reports that he will be getting a blood pressure monitor so that he can continue to monitor his blood pressure at home 3 times a day. DISCHARGE MEDICATIONS: Please see below. ALLERGIES: Please see below. PHYSICAL EXAMINATION ON DISCHARGE: Vitals (See below) General: Sitting up in bed, appears to be comfortable, awake and alert, oriented 3 HEENT: NC, AT CVS: +S1S2 Lungs: Fair air entry b/l, no appreciable wheezing, rhonchi or rales Abdomen: Soft, ND, NT Extremities: No evidence of edema, - Calf tenderness Neuro: 5/5 muscle strength at bilateral UE, and RLE, patient has 4/5 strength at LLE - notes this is chronic and uses a cane at baseline LABORATORY DATA: Please see below. ACTIVITY: [As tolerated]. DISCHARGE PLAN: Patient has been advised to follow-up with his primary care provider within this week Patient has been advised to remain compliant with treatment plan and medications He has been advised to return to the emergency room if he experiences any problems DISPOSITION: Home AMA DISCHARGE CONDITION: [Stable]. TIME SPENT ON DISCHARGE: 25 minutes Vital Signs/I&Os Vital Signs Date Time Temp Pulse Resp B/P (MAP) Pulse Ox O2 Delivery O2 Flow Rate FiO2 04/29/20 14:00 98.4 90 18 167/87 (113) 95 Room Air I&O- Last 24 Hours up to 6 AM 04/29/20 06:00 Intake Total 900 ml Output Total 700 ml Balance 200 ml Laboratory Data Labs 24H Laboratory Tests 2 04/28/20 18:42: Immature Granulocyte % (Auto) 0.3, Neutrophils (%) (Auto) 73.2H, Lymphocytes (%) (Auto) 17.7L, Monocytes (%) (Auto) 6.7H, Eosinophils (%) (Auto) 1.7, Basophils (%) (Auto) 0.4, Neutrophils # (Auto) 7.8, Lymphocytes # (Auto) 1.9, Monocytes # (Auto) 0.7, Eosinophils # (Auto) 0.2, Basophils # (Auto) 0.0, Nucleated Red Blood Cells % (auto) 0.0, Anion Gap 7L, Glomerular Filtration Rate > 60.0, Calcium Level 9.6, Total Bilirubin 0.6, Direct Bilirubin 0.2, Aspartate Amino Transf (AST/SGOT) 22, Alanine Aminotransferase (ALT/SGPT) 41, Alkaline Phosphatase 77, Total Creatine Kinase 120, Creatine Kinase MB 3.2, Creatine Kinase MB Relative Index 2.67, Troponin I 0.03, Total Protein 7.5, Albumin 3.9, Albumin/Globulin Ratio 1.1 04/28/20 19:06: Coronavirus (COVID-19)(PCR) NEGATIVE 04/28/20 23:57: Troponin I 0.02# CBC/BMP Laboratory Tests 04/28/20 18:42 Discharge Medications Scheduled Alpha Lipoic Acid (Alpha Lipoic Acid) 600 Mg Capsule, 600 MG PO QPM, (Reported) Amlodipine Besylate (Amlodipine Besylate) 10 Mg Tablet, 10 MG PO DAILY Ascorbic Acid/Collagen Hydr (Collagen Plus Vit C Capsule) 1 Each Capsule, 1 CAP PO QPM, (Reported) Aspirin (Aspirin EC) 81 Mg Tablet.dr, 81 MG PO 3XW, (Reported) NO SPECIFIC DAYS Ginkgo Biloba (Ginkgo Biloba) 40 Mg Tablet, 40 MG PO DAILY, (Reported) Glucosam/Chond/Collagen/Hyalur (Glucosamine Chondroitin Cap) 1 Each Capsule, 1 CAP PO QPM, (Reported) Green Tea [place] Extract (Green Tea Extract) 150 Mg Capsule, 150 MG PO QPM, (Reported) Hydralazine HCl (Hydralazine HCl) 25 Mg Tablet, 25 MG PO BID Krill/Om-3/Dha/Epa/Phospho/Ast (Krill Oil 1,000 mg Softgel) 1 Each Capsule, 1 CAP PO QPM, (Reported) Lactobacillus Acidophilus (Probiotic) 1 Each Capsule, 1 CAP PO DAILY, (Reported) Loratadine (Claritin) 10 Mg Capsule, 10 MG PO DAILY, (Reported) [place]-3 Fatty Acids/Fish Oil (Fish Oil 1,000 mg Capsule) 1 Each Capsule, 1,000 MG PO QPM, (Reported) Turmeric Root Extract (Turmeric) 500 Mg Capsule, 500 MG PO QPM, (Reported) [Beet Root] , 1 TAB PO DAILY, (Reported) [Prevagen] , 1 TAB PO DAILY, (Reported) Scheduled PRN Albuterol Sulfate (Ventolin Hfa) 18 Gm Hfa.aer.ad, 2 PUFFS INH Q4-6H PRN for wheezing, (Reported) Omeprazole (Omeprazole) 20 Mg Capsule.dr, 20 MG PO DAILY PRN for HEARTBURN, (Reported) Allergies Coded Allergies: Sulfa (Sulfonamide Antibiotics) (Verified Allergy, Severe, rash, 09/12/18) Horse/Equine Containing Products (Verified Allergy, Unknown, HORSE SERUM, 09/13/18) red dye (Verified Allergy, Unknown, 09/12/18) UNKOWN REACTION egg (Verified Adverse Reaction, Intermediate, 09/12/18) gluten (Verified Adverse Reaction, Intermediate, GI upset, 09/12/18) lactase (Verified Adverse Reaction, Intermediate, 09/12/18) DESIREE KELLY MD Apr 29, 2020 15:54
[2020-04-30] MEDS ORDERED: amLODIPine 10 MG TAB PO SCH (09:00)
== END 2020-04-29 15:39 | disposition home or self-care (01) ==
LOC: M ED 17:15 → M ED INP 17:16 → ENRESERV 21:46 → M MSPAV 22:36
PROVIDERS: ADMIT Internal Medicine; ATTEND Internal Medicine
DX: I16.0 Hypertensive urgency (principal); R07.89 Other chest pain; I10 Essential (primary) hypertension; J45.909 Unspecified asthma, uncomplicated; Z87.19 Personal history of other diseases of the digestive system; M54.5 Low back pain; E66.9 Obesity, unspecified; Z79.82 Long term (current) use of aspirin; Z79.899 Other long term (current) drug therapy; Z88.2 Allergy status to sulfonamides; Z91.012 Allergy to eggs; K90.0 Celiac disease; E73.9 Lactose intolerance, unspecified
CPT/HCPCS: 36415; 71045; 80048; 80076; 82550; 82553; 84484; 85025; 93005; 93041; 94760; 96374; 99285; U0002

== ENCOUNTER → 2021-11-11 | Outpatient (REF) | payer BC ==
[~2021-11-11] MED LIST changes: +ALPH600C PO; +AMLO1TAB25 PO; +ASPI-161 PO; +BEET ROOT PO; +COLLCAP PO; +FISH1000 PO; +GINK40TA PO; +GLUCCAP4 PO; +GREE150C7 PO; +HYDR25TA PO; +KRIL1CAP7 PO; +OMEP1CAP73 PO; +PREVAGEN PO; +PROBCAP14 PO; +RA T500C2 PO
== END ==
LOC: M SFHCDERM 09:16
PROVIDERS: ATTEND Physician Assistant
DX: L82.1 Other seborrheic keratosis (principal)

== ENCOUNTER → 2022-06-30 | Outpatient (CLI) | payer BC ==
[~2022-06-30] MED LIST changes: +KRIL1CAP PO; -KRIL1CAP7 PO
== END ==
LOC: M WUC 14:35
PROVIDERS: ATTEND Family Medicine
DX: M79.672 Pain in left foot (principal)

== ENCOUNTER → 2024-02-02 | Outpatient (CLI) | payer BC ==
[~2024-02-02] MED LIST changes: -ASPI-161 PO; +ASPI-615 PO; -HYDR25TA PO; +HYDR25TA88 PO
== END ==
LOC: M WUC 13:27
PROVIDERS: ATTEND Family Medicine
DX: M25.461 Effusion, right knee (principal); M85.861 Other specified disorders of bone density and structure, right lower leg